=== PATIENT | female | born 1945 | race Caucasian/White ===

== ENCOUNTER 2021-10-03 11:28 | Outpatient (CLI) | payer OTHER, BC, SELFPAY ==
[2021-10-03 21:33] LABS: Cholesterol* 195 mg/dL (90-199); HDL Cholesterol* 42 mg/dL (>=50); LDL Cholesterol Calculated 107 mg/dL (<100); Triglycerides* 228 mg/dL (40-149)
[2021-10-03 22:24] LABS: Vitamin B12* 435 pg/mL (243-894)
== END 2021-10-03 11:29 | disposition home or self-care (01) ==
PROVIDERS: PCP Physician Assistant Medical; Visit Provider Physician Assistant Medical
DX: Z00.00 Encounter for general adult medical examination without abnormal findings (principal); I10 Essential (primary) hypertension; M54.9 Dorsalgia, unspecified; K21.9 Gastro-esophageal reflux disease without esophagitis; G47.9 Sleep disorder, unspecified; G89.29 Other chronic pain; R01.1 Cardiac murmur, unspecified; R45.89 Other symptoms and signs involving emotional state; Z13.1 Encounter for screening for diabetes mellitus; Z13.6 Encounter for screening for cardiovascular disorders; Z13.29 Encounter for screening for other suspected endocrine disorder
CPT/HCPCS: 80061; 82525; 82607; 82652; 84443; 84446

== ENCOUNTER 2021-10-17 13:15 | Outpatient (CLI) | payer BC, SELFPAY ==
[2021-10-17 21:17] LABS: Chloride* 103 mmol/L (96-114); Potassium* 3.9 mmol/L (3.6-5.1); Sodium* 138 mmol/L (135-149)
[2021-10-17 21:22] LABS: Alanine Aminotransferase* 23 U/L (4-35); Alkaline Phosphatase* 103 U/L (40-150); Aspartate Amino Transferase* 33 U/L (12-35); Bilirubin Total* 0.6 mg/dL (0.1-1.5); Blood Urea Nitrogen* 34 mg/dL (7-30); Calcium* 8.8 mg/dL (8.4-10.6); Carbon Dioxide* 25 mmol/L (20-32); Creatinine* 1.4 mg/dL (0.5-1.5); Estimated Glomerular Filt Rate 39 ml/min; Glucose* 103 mg/dL (60-115); Total Protein* 7.6 g/dL (6.0-8.3)
[2021-10-17 22:00] LABS: HIV 1/2/P24 Combo Screen* Negative (Negative)
[2021-10-17 22:13] LABS: Hepatitis C Virus Antibody* Negative (Negative)
[2021-10-19 18:42] LABS: Rapid Plasma Reagin (RPR) Non Reactive (Non Reactive)
== END 2021-10-17 13:16 | disposition home or self-care (01) ==
PROVIDERS: PCP Physician Assistant Medical; Visit Provider Physician Assistant Medical
DX: Z00.00 Encounter for general adult medical examination without abnormal findings (principal); I10 Essential (primary) hypertension; G47.9 Sleep disorder, unspecified; K21.9 Gastro-esophageal reflux disease without esophagitis; R45.89 Other symptoms and signs involving emotional state
CPT/HCPCS: 80053; 86592; 86703; 86803